=== PATIENT | female | born 1940 | race Caucasian/White ===

== ENCOUNTER 2018-06-14 21:30 | Emergency (ER) | payer OTHER ==
--- NOTE | 2018-06-14 22:06 | EDPHY ---
General Time Seen by Provider: 06/14/18 22:02 Narrative: CHIEF COMPLAINT: Fall, hand pain, lip injury HISTORY OF PRESENT ILLNESS: Patient presents by private vehicle with complaints of mechanical fall. She states that she was working this evening when she tripped in a parking lot, landing on her face and her left hand. She complains of moderate left hand pain involving the 4th finger and the 3rd and 4th metacarpals. Worse palpation and movement. Does not radiate. No numbness or tingling. No weakness. No laceration or puncture there. Her 2nd complaint is facial pain involving the left upper lip and fractured upper dentures. She denies neck pain or stiffness. She denies loss of consciousness or headache. No chest, back or abdominal pain. She is ambulatory without difficulty. No use of anticoagulants. No vomiting. No visual disturbance. REVIEW OF SYSTEMS: 10 systems were reviewed and negative with the exception of the elements mentioned in the history of present illness. PCP: Farrukh Dan PA-C SPECIALISTS: None currently PAST MEDICAL HISTORY: Hypertension PAST SURGICAL HISTORY: No surgical history SOCIAL HISTORY: Never smoker. Lives independently. Works for the [employer] FAMILY HISTORY: Noncontributory EXAMINATION: Vitals: Triage VS reviewed General Appearance: Alert, no distress. Ambulatory. Conversing in full sentences. Head: normocephalic. No Bae sign. No raccoon eyes. No depression or deformity. There is superficial trauma to the left upper lip as below. Superficial abrasion to the left maxilla. Eyes: Bilateral arcus senilis. Pupils equal and round, no conjunctival pallor or injection EOM symmetric. No diplopia with upward outward gaze in either direction. ENT, Mouth: Mucous membranes moist. Dentures are present with fracture of the upper denture. There is a superficial laceration the corner of the left upper lip without involvement of the vermilion border. The airway is widely patent. Neck: Normal inspection, supple, non-tender. No crepitus or deformity. Midline trachea. Respiratory: Lungs are clear to auscultation Cardiovascular: Regular rate and rhythm. No murmur Gastrointestinal: Abdomen is soft and nontender Back: non-tender, no bony abnormalities Neurological: GCS 15. A&O, nonfocal, normal gait. Light sensory symmetric in upper lower extremities. Strength is symmetric upper lower extremities. Skin: Warm and dry, no rash. Superficial abrasion to the face as above. Superficial lip laceration as above. Extremities: Tenderness of the left hand involving the 3rd and 4th metacarpals on the left 4th finger. No deformity. No crepitus. No tenderness of the left wrist, forearm, elbow or shoulder. Range of motion of the upper extremities symmetric without any evidence of compartment syndrome. Psychiatric: Mood and affect normal DIFFERENTIAL DIAGNOSES: Including but not limited to sprain, strain, fracture, dislocation, subluxation , facial fracture, intracranial hemorrhage, concussion, lip laceration, MDM: 10:00 p.m. Mechanical fall with blunt facial trauma involving in superficial lip laceration and abrasion, left hand pain involving the 3rd and 4th metacarpals and left ring finger. She is awake alert. She is conversing appropriately. She has no headache. She has no neck pain. She has no neuro complaints. I do feel she warrants CT scan of the head given her age greater than 64 with facial trauma. She also warrants imaging of the left hand by plain film. She is in no acute distress. She is asking that I would not suture repair of the lip laceration. We will irrigate the wound re-evaluated. 10:35 p.m. Notified by radiologist Dr. Benton. CT scan of the head is unremarkable for acute injuries. I re-evaluated the patient and re-evaluated her lip laceration after irrigation. There is a 1.5 cm area of laceration on the mucosal and read layer of the left upper lip near the junction of the lower lip. There is a superficial injury to the vermilion border of a partial tissue avulsion but no repairable laceration. No foreign body identified. The x-ray of the left hand as read by me, reveals comminuted and mildly displaced fractures of the 3rd and 4th metacarpals. 11:15 p.m. Lip laceration has been repaired with excellent approximation of the wound borders. 1 cm excisional debridement. No involvement of the vermilion border. Discharged home stable condition with instructions to contact her worker's compensation [facility], hand surgeon and she will need to follow-up for repair for dentures. We discussed head injury precautions. We discussed ice and elevation. I have answered all her questions. She is well-appearing. She is neuro intact post splint procedure. She is ambulatory without any difficulty. Discharged home stable condition. PROCEDURE: Laceration repair Consent: Verbal Location: Left upper lip Length of repair: 1.5 cm Complexity: Simple Layer involvement: Single Anesthesia: Local. 0.25% Marcaine without epinephrine, 5 mL Irrigation: Extensive Debridement: 1 cm superficial nonviable tissue debridement adjacent to the laceration Procedure description: Following good anesthesia, the wound was copiously irrigated. Wound bed was explored with a sterile glove, and there is no foreign body noted. Wound borders were approximated well with good hemostasis. Tolerated well without complication. Suture/Staple material: Fast-absorbing plain gut, 4 simple ruptured sutures. Wound care: Routine as discussed Suture/Staple removal: No removal necessary SUPERVISION: This patient was independently evaluated without direct involvement of or examination by the attending physician. CONSULTATION: None - History Smoking Status: Never smoked - Objective Vital Signs: Initial Vital Signs Temperature (C) 98.6 F 06/14/18 21:37 Heart Rate 77 06/14/18 21:37 Respiratory Rate 16 06/14/18 21:37 Blood Pressure 190/94 H 06/14/18 21:37 O2 Sat (%) 94 06/14/18 21:37 O2 Delivery Mode Room Air Allergies/Adverse Reactions: Penicillins Allergy (Verified 06/14/18 21:36) Home Medications: Medication Instructions Recorded Blood Pressure Pill 06/14/18 Departure - Departure Disposition: Home, Routine, Self-Care Clinical Impression: Fall from standing Qualifiers: Encounter type: initial encounter Qualified Code(s): W19.XXXA - Unspecified fall, initial encounter Lip laceration Qualifiers: Encounter type: initial encounter Qualified Code(s): S01.511A - Laceration without foreign body of lip, initial encounter Sprain of hand, left Qualifiers: Encounter type: initial encounter Qualified Code(s): S63.92XA - Sprain of unspecified part of left wrist and hand, initial encounter Traumatic hematoma of face Qualifiers: Encounter type: initial encounter Qualified Code(s): S00.83XA - Contusion of other part of head, initial encounter Fracture of third metacarpal bone of left hand Qualifiers: Encounter type: initial encounter Fracture type: closed Metacarpal location: shaft Fracture alignment: displaced Qualified Code(s): S62.323A - Displaced fracture of shaft of third metacarpal bone, left hand, initial encounter for closed fracture Fracture of fourth metacarpal bone of left hand Qualifiers: Encounter type: initial encounter Fracture type: closed Metacarpal location: shaft Fracture alignment: displaced Qualified Code(s): S62.325A - Displaced fracture of shaft of fourth metacarpal bone, left hand, initial encounter for closed fracture Condition: Good Instructions: Care For Your Absorbable Stitches (ED), Hand Fracture (ED) Additional Instructions: 1. Ice to affected area as needed 2. Keep your splint in place until seen by Orthopedics for definitive care 3. Warm salt water rinses after each meal for the lip laceration 4. Contact hand surgeon for outpatient definitive care of the left hand fractures Referrals: RHODA GUERRERO [Other] - As per Instructions Harpreet Reyes MD [Medical Doctor] - As per Instructions Stand Alone Forms: Work Comp Follow Up
[2018-06-14 23:33] VITALS: BP 177/92
== END 2018-06-14 23:34 | disposition home or self-care (01) ==
DX: S01.511A Laceration without foreign body of lip, initial encounter (principal); S63.92XA Sprain of unspecified part of left wrist and hand, initial encounter; S00.83XA Contusion of other part of head, initial encounter; S62.323A Displaced fracture of shaft of third metacarpal bone, left hand, initial encounter for closed fracture; S62.325A Displaced fracture of shaft of fourth metacarpal bone, left hand, initial encounter for closed fracture; I10 Essential (primary) hypertension; W01.198A Fall on same level from slipping, tripping and stumbling with subsequent striking against other object, initial encounter; Y99.0 Civilian activity done for income or pay